=== PATIENT | female | born 1975 | race Caucasian/White ===

== ENCOUNTER 2018-05-02 19:20 | Inpatient (IN) ==
[2018-05-02] MEDS ORDERED: ACETAMINOPHEN 325 MG TABLET PO PRN (20:33)
[2018-05-02] MEDS ORDERED: ONDANSETRON 4 MG/2 ML VIAL IV PRN (20:33)
[2018-05-02] MEDS: HYDROmorphone 2 MG/1 ML VIAL IV PRN (21:05)
[2018-05-02] MEDS: DEXTROSE 5% NACL 0.45% 1,000 ML IV SCH (22:30)
[2018-05-03] MEDS: HYDROmorphone 2 MG/1 ML VIAL IV PRN (02:38)
[2018-05-03] MEDS: PIPERACILLIN/TAZOBACTAM 3,375 MG in SODIUM CHLORIDE 0.9% 100 ML IV SCH ×3 (02:38→23:50)
[2018-05-03 04:31] LABS: Basophils % 0.1 % (0.0-0.8); Hematocrit 38.2 VOL% (35.7-47.0); Hemoglobin 12.5 GM/DL (12.0-16.0); Immature Granulocytes % 0.6 %; Immature Granulocytes Absolute 0.09 #; Lymphocytes # 0.9 10*3/uL (1.4-4.0); Lymphocytes % 5.5 % (21.3-54.2); Mean Corpuscular HGB Conc 32.7 GM/DL (32-36); Mean Corpuscular Hemoglobin 27 PG (27-34); Mean Corpuscular Volume 82.7 FL (87-102); Mean Platelet Volume 11.3 FL (9.6-12.0); Monocytes % 6.1 % (1.7-12.7); Neutrophils # 14.1 10*3/uL (1.4-7.4); Neutrophils % 87.7 % (38.7-73.9); Platelet Count 243 T/CUMM (130-400); Red Blood Count 4.62 MC/CUMM (3.8-5.5); Red Cell Distribution Width 13.5 % (9.3-17.3)
[2018-05-03 05:00] LABS: Bilirubin,Total 0.5 MG/DL (0.2-1.0); Calcium 7.9 MG/DL (8.5-10.1); Osmolality,Calculated 279.4 MOS/KG (273-304); Potassium 3.1 MMOL/L (3.5-5.1); Total Protein 7.2 G/DL (6.4-8.3)
[2018-05-03] MEDS ORDERED: LIDOCAINE 1%/EPI INJ 20 ML VIAL ONE (06:21)
[2018-05-03] MEDS ORDERED: TISSUE ADHESIVE 1 EACH APPLICATOR TOP ONE (06:21)
[2018-05-03] MEDS ORDERED: BUPIVACAINE 0.5% 50 ML VIAL ONE (06:21)
[2018-05-03] MEDS ORDERED: cefOXitin 2,000 MG in SYRINGE 1 EACH IV ONE (06:36)
[2018-05-03] MEDS: POTASSIUM CHLORIDE RIDER 10 MEQ in PREMIX 1 EACH IV SCH ×10 (07:06→23:02)
[2018-05-03] MEDS: PANTOPRAZOLE 40 MG TABLET PO SCH (08:11)
[2018-05-03] MEDS ORDERED: ONDANSETRON 4 MG/2 ML VIAL IV PRN (11:19)
[2018-05-03] MEDS ORDERED: HYDROmorphone 2 MG/1 ML VIAL IV PRN (11:19)
[2018-05-03] MEDS ORDERED: MIDAZOLAM 2 MG/2 ML VIAL ONE (11:29)
[2018-05-03] MEDS ORDERED: SEVOFLURANE 1 UNIT/15 MINUTE INH ONE (11:29)
[2018-05-03] MEDS ORDERED: PROPOFOL 200 MG/20 ML VIAL IV ONE (11:29)
[2018-05-03] MEDS ORDERED: fentaNYL 100 MCG/2 ML VIAL ONE (11:29)
[2018-05-03] MEDS ORDERED: ONDANSETRON 4 MG/2 ML VIAL ONE ×2 (11:30)
[2018-05-03] MEDS ORDERED: ROCURONIUM 100 MG/10 ML VIAL IV ONE (11:30)
[2018-05-03] MEDS ORDERED: DEXAMETHASONE 10 MG/1 ML VIAL ONE (11:30)
[2018-05-03] MEDS ORDERED: HYDROmorphone 2 MG/1 ML VIAL ONE (11:30)
[2018-05-03] MEDS ORDERED: KETOROLAC 30 MG/1 ML VIAL ONE (11:30)
[2018-05-03] MEDS ORDERED: NEOSTIGMINE 10 MG/10 ML VIAL ONE (11:30)
[2018-05-03] MEDS ORDERED: GLYCOPYRROLATE 0.4 MG/2 ML VIAL ONE (11:30)
[2018-05-03] MEDS ORDERED: ACETAMINOPHEN 1,000 MG/100 ML VIAL IV ONE (11:30)
[2018-05-03] MEDS ORDERED: SUCCINYLCHOLINE 200 MG/10 ML VIAL ONE (11:30)
[2018-05-03] MEDS: KETOROLAC 30 MG/1 ML VIAL IV SCH ×2 (14:59→20:01)
[2018-05-03] MEDS: DEXTROSE 5% NACL 0.45% 1,000 ML IV SCH ×2 (15:24)
[2018-05-03] MEDS: ENOXAPARIN 40 MG/0.4 ML SYRINGE SUBCUT SCH (21:49)
[2018-05-04] MEDS: KETOROLAC 30 MG/1 ML VIAL IV SCH ×4 (01:55→20:58)
[2018-05-04] MEDS: DEXTROSE 5% NACL 0.45% 1,000 ML IV SCH ×2 (04:48→04:49)
[2018-05-04 05:20] LABS: Basophils % 0.1 % (0.0-0.8); Hematocrit 33.6 VOL% (35.7-47.0); Hemoglobin 10.7 GM/DL (12.0-16.0); Immature Granulocytes % 0.8 %; Immature Granulocytes Absolute 0.12 #; Lymphocytes % 6.7 % (21.3-54.2); Mean Corpuscular HGB Conc 31.8 GM/DL (32-36); Mean Corpuscular Hemoglobin 27 PG (27-34); Mean Corpuscular Volume 83.8 FL (87-102); Mean Platelet Volume 11.6 FL (9.6-12.0); Monocytes # 0.9 10*3/uL (0.11-0.8); Monocytes % 6.4 % (1.7-12.7); Neutrophils # 12.3 10*3/uL (1.4-7.4); Platelet Count 208 T/CUMM (130-400); Red Blood Count 4.01 MC/CUMM (3.8-5.5); Red Cell Distribution Width 13.1 % (9.3-17.3); White Blood Count 14.3 T/CUMM (4-12)
[2018-05-04 05:37] LABS: Calcium 7.9 MG/DL (8.5-10.1); Osmolality,Calculated 275.7 MOS/KG (273-304); Potassium 3.5 MMOL/L (3.5-5.1)
[2018-05-04] MEDS: PIPERACILLIN/TAZOBACTAM 3,375 MG in SODIUM CHLORIDE 0.9% 100 ML IV SCH (05:55)
[2018-05-04] MEDS: ESCITALOPRAM 10 MG TABLET PO SCH (08:40)
[2018-05-04] MEDS: buPROPion XL 150 MG TABLET PO SCH (08:40)
[2018-05-04] MEDS: PANTOPRAZOLE 40 MG TABLET PO SCH (08:41)
[2018-05-04] MEDS: AMOXICILLIN/CLAV 875 MG TABLET PO SCH ×2 (12:28→20:57)
[2018-05-04] MEDS: HYDROmorphone 2 MG/1 ML VIAL IV PRN (21:01)
[2018-05-04] MEDS: ENOXAPARIN 40 MG/0.4 ML SYRINGE SUBCUT SCH (21:08)
[2018-05-05] MEDS: KETOROLAC 30 MG/1 ML VIAL IV SCH ×2 (02:09→09:42)
[2018-05-05 05:35] LABS: Basophils % 0.3 % (0.0-0.8); Eosinophils # 0.1 10*3/uL (0.0-0.87); Eosinophils % 0.8 % (0.00-10.9); Hematocrit 33.4 VOL% (35.7-47.0); Hemoglobin 10.8 GM/DL (12.0-16.0); Immature Granulocytes % 0.5 %; Immature Granulocytes Absolute 0.04 #; Lymphocytes # 1.5 10*3/uL (1.4-4.0); Lymphocytes % 20.6 % (21.3-54.2); Mean Corpuscular HGB Conc 32.3 GM/DL (32-36); Mean Corpuscular Hemoglobin 27 PG (27-34); Mean Corpuscular Volume 83.3 FL (87-102); Mean Platelet Volume 11.5 FL (9.6-12.0); Monocytes # 0.5 10*3/uL (0.11-0.8); Monocytes % 7.4 % (1.7-12.7); Neutrophils # 5.1 10*3/uL (1.4-7.4); Neutrophils % 70.4 % (38.7-73.9); Platelet Count 237 T/CUMM (130-400); Red Blood Count 4.01 MC/CUMM (3.8-5.5); Red Cell Distribution Width 13.1 % (9.3-17.3); White Blood Count 7.3 T/CUMM (4-12)
[2018-05-05] MEDS: buPROPion XL 150 MG TABLET PO SCH (09:42)
[2018-05-05] MEDS: ESCITALOPRAM 10 MG TABLET PO SCH (09:42)
[2018-05-05] MEDS: PANTOPRAZOLE 40 MG TABLET PO SCH (09:43)
[2018-05-05] MEDS: AMOXICILLIN/CLAV 875 MG TABLET PO SCH (09:43)
[2018-05-05 11:26] VITALS: BP 109/67
== END 2018-05-05 13:09 | disposition home or self-care (01) | DRG 233 ==
LOC: EDUNIT# → EDBD → N.ED 19:20 → N.EDINP 20:40 → N.3E 21:04
PROVIDERS: ADMIT Surgery; ATTEND Surgery